=== PATIENT | female | born 1945 | race Caucasian/White ===

== ENCOUNTER → 2016-08-14 | Outpatient (CLI) | payer OTHER ==
--- NOTE | 2016-08-14 08:16 | BD ---
EXAMINATION TYPE: MG DEXA axial skeleton. DATE OF EXAM: 08/14/2016 Height: 57.50 inches Weight: 130 FRAX RISK QUESTIONS: Alcohol (3 or more units per day): no Family History (Parent hip fracture): no Glucocorticoids (More than 3mos): no (Ex: prednisone, prednisolone, methylprednisolone, dexamethasone, and hydrocortisone). History of Fracture in Adulthood: no Secondary Osteoporosis: 1. Type 1 Diabetes: no 2. Hyperthyroidism: unsure 3. Menopause before 45: no, age 49 4. Malnutrition: no 5. Chronic liver disease: no Rheumatoid Arthritis: no Current Tobacco Use: no RISK FACTORS HISTORY OF: Family History of Osteoporosis: unsure, none that knows of Drink Alcohol: occasionally, once & a while Active: yes Diet low in dairy products/other sources of calcium: no Postmenopausal woman: yes Take estrogen and/or progesterone medications: no Lost more than 2 inches in height since high school: unsure Frequent falls: no Poor Health: no Hyperparathyroidism: unsure Adrenal Insufficiency: no MEDICATIONS: Prednisone or other steroids: no Thyroid Medications: yes Which medication: Levothyroxine How Long: since 1998 Osteoporosis Medications: yes Which medication: Fosamax How Long: over 5 years, before that took Actonel Additional Medications: Vit D & Calcium Additional History: thyroid nodule removed EXAM MEASUREMENTS: Bone mineral densitometry was performed using the [employer] System. Bone mineral density as measured about the Lumbar spine is: ----- L1-L4(G/cm2): 1.179 T Score Values are as follows: ----- L2: -0.4 ----- L3: 0.2 ----- L4: -0.1 ----- L1-L4: 0.0 Bone mineral density has: Decreased -1.4% since study of: 08/09/2014 Bone mineral density about the R hip (g/cm2): 0.814 Bone mineral density about the L hip (g/cm2): 0.844 T Score values are as follows: -----R Neck: -1.6 -----L Neck: -1.4 -----R Total: 0.1 -----L Total: 0.1 Bone mineral density has: Increased 1.2% since study of: 08/09/2014 IMPRESSION: Osteopenia (T Score between -2.5 and -1 as noted by T score values Bilateral Necks There is slightly increased risk of fracture and the patient may be considered for treatment. Re-Screen 2-5 years. NOTE: T-SCORE=SD OF THE YOUNG ADULT MEAN.
--- NOTE | 2016-08-14 09:55 | MM ---
Reason for exam: screening (asymptomatic). Last mammogram was performed 1 year ago. History: Patient is postmenopausal. Physical Findings: A clinical breast exam by your physician is recommended on an annual basis and results should be correlated with mammographic findings. MG Screening Mammo w CAD Bilateral CC and MLO view(s) were taken. Prior study comparison: August 13, 2015, bilateral MG screening mammo w CAD. August 09, 2014, bilateral MG screening mammo w CAD. The breast tissue is almost entirely fat. There is no discrete abnormality. No significant changes when compared with prior studies. ASSESSMENT: Negative, BI-RAD 1 RECOMMENDATION: Routine screening mammogram of both breasts in 1 year.
== END | disposition home or self-care (01) ==
LOC: RADMAMWWP 06:51
PROVIDERS: ATTEND Family Medicine
DX: Z12.31 Encounter for screening mammogram for malignant neoplasm of breast (principal); M85.80 Other specified disorders of bone density and structure, unspecified site
CPT/HCPCS: 77080; G0202

== ENCOUNTER 2017-07-14 08:51 | Day surgery (SDC) | payer OTHER ==
[2017-07-12 16:16] VITALS: BMI 28.2
[~2017-07-14 08:51] MED LIST: LACTATED RINGERS 1,000 ML IV SCH; LIDOCAINE 1% 20 ML VIAL (10MG/ML) FOR IV START INTRADERMA PRN
[2017-07-14 09:44] VITALS: TEMP 98.2
[2017-07-14] MEDS ORDERED: LACTATED RINGERS 1,000 ML IV ONE (09:45)
--- NOTE | 2017-07-14 10:06 | P.GSHP ---
History of Present Illness H&P Date: 07/14/17 CHIEF COMPLAINT: Colon screen HISTORY OF PRESENT ILLNESS: The patient is a 71-year-old female who presents for colon screen. Lower endoscopy was offered for further evaluation and management. PAST MEDICAL HISTORY: Please see list. PAST SURGICAL HISTORY: Please see list. MEDICATIONS: Please see list. ALLERGIES: Please see list. SOCIAL HISTORY: No illicit drug use FAMILY HISTORY: No reports of Crohn disease or ulcerative colitis. REVIEW OF ORGAN SYSTEMS: CONSTITUTIONAL: No reports of fevers or chills. PHYSICAL EXAM: VITAL SIGNS: Stable GENERAL: Well-developed pleasant in no acute distress. HEENT: No scleral icterus. Extraocular movements grossly intact. Moist buccal mucosa. NECK: Supple without lymphadenopathy. CHEST: Unlabored respirations. Equal bilateral excursions. CARDIOVASCULAR: Regular rate and rhythm. Distal 2+ pulses. ABDOMEN: Soft, nontender, nondistended. MUSCULOSKELETAL: No clubbing, cyanosis, or edema. ASSESSMENT: 1. Colon screen. PLAN: 1. Recommend proceeding with a lower endoscopy Past Medical History Past Medical History: Thyroid Disorder Additional Past Medical History / Comment(s): HX OF THYROID NODULE, HX OF COLON POLYP. History of Any Multi-Drug Resistant Organisms: None Reported Past Surgical History: Appendectomy, Bladder Surgery Additional Past Surgical History / Comment(s): BLADDER SUSPENSION X2, RIGHT THYROID NODULE Past Anesthesia/Blood Transfusion Reactions: No Reported Reaction Past Psychological History: No Psychological Hx Reported Smoking Status: Never smoker Past Alcohol Use History: Rare Past Drug Use History: None Reported - Past Family History Daughter(s) Family Medical History: Cancer Additional Family Medical History / Comment(s): FROM COLON CANCER Father Additional Family Medical History / Comment(s): ALZHEIMERS Sister(s) Additional Family Medical History / Comment(s): ALZHEIMERS Mother Additional Family Medical History / Comment(s): HEART FAILURE Medications and Allergies Home Medications Medication Instructions Recorded Confirmed Type Alendronate Sodium [Fosamax] 70 mg PO WEEKLY 07/12/17 07/12/17 History Georges/D3/Mag11/Zinc/Machine Feeder Raw Stock/Abdelrahman/Bor 1 each PO DAILY 07/12/17 07/12/17 History [Caltrate 600+D Plus Tablet] Levothyroxine Sodium [Synthroid] 75 mcg PO DAILY 07/12/17 07/12/17 History Multivit/Folic Acid/Vit K1 1 each PO DAILY 07/12/17 07/12/17 History [One-A-Day Women's 50 Plus Tab] Vitamin E (Dl,Tocopheryl Acet) 400 unit PO DAILY 07/12/17 07/12/17 History [Vitamin E] Allergies Allergy/AdvReac Type Severity Reaction Status Date / Time codeine Allergy Unknown Rash/Hives Verified 07/12/17 16:07 Penicillins Allergy Unknown Rash/Hives Verified 07/12/17 16:07 Sulfa (Sulfonamide Allergy Unknown Rash/Hives Verified 07/12/17 16:07 Antibiotics) Surgical - Exam Vital Signs Temp Pulse Resp BP Pulse Ox 98.2 F 80 18 139/76 99 07/14/17 09:43 07/14/17 09:43 07/14/17 09:43 07/14/17 09:43 07/14/17 09:43
[2017-07-14] MEDS ORDERED: PROPOFOL 10 MG/ML 20 ML VIAL IV ONE (10:25)
[2017-07-14] MEDS ORDERED: LIDOCAINE 1% INJ 10MG/ML (20 ML MDV) ONE (10:25)
--- NOTE | 2017-07-14 10:43 | P.PCN ---
Date of Procedure: 07/14/17 Description of Procedure: PREOPERATIVE DIAGNOSIS: Colonoscopy screening. Personal history of polyps. History of colon cancer in daughter POSTOPERATIVE DIAGNOSIS: Colonoscopy screening. Personal history of polyps. History of colon cancer in daughter OPERATION: Colonoscopy to the ileocecal valve and appendiceal orifice. SURGEON: Manju Camargo MD. ANESTHESIA: MAC. INDICATIONS: The patient is a 71-year-old female who presents for colonoscopy screening. Last colonoscopy was 5 years ago. Benefits and risks were described and informed consent was obtained. DESCRIPTION OF PROCEDURE: The patient had undergone Gatorade, MiraLAX and Dulcolax prep. She had been brought into the operating room and laid in the left lateral decubitus position. After adequate intravenous sedation, the rectum was examined with 2% lidocaine jelly. E external hemorrhoids were encountered. The rectal tone was within normal limits. No lesions were palpated in the rectal vault. An Olympus colonoscope was advanced until the ileocecal valve and appendiceal orifice were clearly viewed. The prep was excellent with clear visualization of the mucosal folds. The scope was removed with visualization of each mucosal fold. No scattered diverticulosis was encountered. No colonic polyps were found. No evidence of focal colitis was found. Retroflexion of the scope demonstrated grade 1 internal hemorrhoids without active bleeding or inflammation. The colon was desufflated. The patient had tolerated the procedure well. Withdrawal time was over 6 minutes. FINDINGS: Internal hemorrhoids, grade 1 External prolapsed hemorrhoids, grade 2 No arteriovenous malformations. No adenomatous polyps. No focal colitis. No diverticulosis. RECOMMENDATIONS: Lower endoscopy 5 years, 2022 Plan - Discharge Summary New Discharge Prescriptions: No Action Vitamin E (Dl,Tocopheryl Acet) [Vitamin E] 400 unit PO DAILY Levothyroxine Sodium [Synthroid] 75 mcg PO DAILY Multivit/Folic Acid/Vit K1 [One-A-Day Women's 50 Plus Tab] 1 each PO DAILY Georges/D3/Mag11/Zinc/Diversity Intern/Abdelrahman/Bor [Caltrate 600+D Plus Tablet] 1 each PO DAILY Alendronate Sodium [Fosamax] 70 mg PO WEEKLY Discharge Medication List Alendronate Sodium [Fosamax] 70 mg PO WEEKLY 07/12/17 [History] Georges/D3/Mag11/Zinc/Diversity Intern/Abdelrahman/Bor [Caltrate 600+D Plus Tablet] 1 each PO DAILY [History] Levothyroxine Sodium [Synthroid] 75 mcg PO DAILY 07/12/17 [History] Multivit/Folic Acid/Vit K1 [One-A-Day Women's 50 Plus Tab] 1 each PO DAILY 07/12 [History] Vitamin E (Dl,Tocopheryl Acet) [Vitamin E] 400 unit PO DAILY 07/12/17 [History]
[2017-07-14 10:49] VITALS: RESP 16
[2017-07-14 11:05] VITALS: BP 119/79; PULSE 69
== END 2017-07-14 11:23 | disposition home or self-care (01) ==
LOC: ORWHC2ENDO 08:51
PROVIDERS: ATTEND Surgery Plastic and Reconstructive Surgery
DX: Z12.11 Encounter for screening for malignant neoplasm of colon (principal); K64.0 First degree hemorrhoids; K64.1 Second degree hemorrhoids; Z86.010 Personal history of colon polyps; Z80.0 Family history of malignant neoplasm of digestive organs; E07.9 Disorder of thyroid, unspecified; Z79.890 Hormone replacement therapy; Z79.899 Other long term (current) drug therapy; Z88.5 Allergy status to narcotic agent; Z88.0 Allergy status to penicillin; Z88.2 Allergy status to sulfonamides
CPT/HCPCS: J2001; J2704; G0105; 45378

== ENCOUNTER → 2018-08-19 | Outpatient (CLI) | payer OTHER ==
--- NOTE | 2018-08-19 14:50 | BD ---
EXAMINATION TYPE: Axial Bone Density DATE OF EXAM: 08/19/2018 COMPARISON: 08.14.2016 CLINICAL HISTORY: 73 YR OLD FEMALE....ICD-10 CODE: M85.80 DISORDER OF BONE Height: 57 Weight: 133 FRAX RISK QUESTIONS: NOTHING TO NOTE HERE RISK FACTORS HISTORY OF: Family History of Osteoporosis: [facility] Postmenopausal woman: YES AT AGE 49 Lost more than 2 inches in height since high school: YES MEDICATIONS: Thyroid Medications: YES, GENERIC SYNTHROID, FOR ABOUT 20 YRS Osteoporosis Medications: FOSAMAX IN PAST....STOPPED TAKING LAST MONTH, ON IT FOR MANY YRS Additional Medications: VIT D AND E AND ONE A-DAY MULTIVITAMIN AND CALTRATE Additional History: NOTHING ADDITIONAL TO NOTE HERE EXAM MEASUREMENTS: Bone mineral densitometry was performed using the [employer] System. Bone mineral density as measured about the Lumbar spine is: ----- L1-L4(G/cm2): 1.253 T Score Values are as follows: ----- L1: 0.4 ----- L2: 0.3 ----- L3: 1.2 ----- L4: 0.3 ----- L1-L4: 0.6 Bone mineral density has: Increased 7.1% since study of: 08.14.2016 Bone mineral density about the R hip (g/cm2): 0.978 Bone mineral density about the L hip (g/cm2): 1.035 T Score values are as follows: -----R Neck: -1.3 -----L Neck: -1.7 -----R Total: -0.2 -----L Total: 0.2 Bone mineral density has: Decreased -1.2% since study of: 08.14.2016 FRAX%s: THERE IS A 10.7% CHANCE FOR A MAJOR OSTEOPOROTIC FX AND A 1.9% FOR HIP ....PROBABILITY FOR FX IN 10 YRS TIME IMPRESSION: Osteopenia (T Score between -2.5 and -1). There is slightly increased risk of fracture and the patient may be considered for treatment. Re-Screen 2-5 years. NOTE: T-SCORE=SD OF THE YOUNG ADULT MEAN.
--- NOTE | 2018-08-23 11:24 | MM ---
Reason for exam: screening (asymptomatic). Last mammogram was performed 2 years ago. History: Patient is postmenopausal. Physical Findings: A clinical breast exam by your physician is recommended on an annual basis and results should be correlated with mammographic findings. MG 3D Screening Mammo W/Cad Bilateral CC and MLO view(s) were taken. Prior study comparison: August 14, 2016, bilateral MG screening mammo w CAD. August 13, 2015, bilateral MG screening mammo w CAD. There are scattered fibroglandular densities. No significant changes when compared with prior studies. ASSESSMENT: Negative, BI-RAD 1 RECOMMENDATION: Routine screening mammogram of both breasts in 1 year.
== END | disposition home or self-care (01) ==
LOC: RADBDWWP 12:26
PROVIDERS: ATTEND Family Medicine
DX: Z12.31 Encounter for screening mammogram for malignant neoplasm of breast (principal); M85.88 Other specified disorders of bone density and structure, other site
CPT/HCPCS: 77063; 77067; 77080

== ENCOUNTER → 2020-08-29 | Outpatient (CLI) | payer MEDICARE ==
--- NOTE | 2020-08-29 15:44 | XR ---
EXAMINATION TYPE: XR chest 2V DATE OF EXAM: 08/29/2020 COMPARISON: NONE HISTORY: R09.89 TECHNIQUE: Frontal and lateral views of the chest are obtained. FINDINGS: There is no focal air space opacity, pleural effusion, or pneumothorax seen. The cardiac silhouette size is within normal limits. The osseous structures are intact. IMPRESSION: No acute cardiopulmonary process.
== END | disposition home or self-care (01) ==
LOC: RADXRMAIN 15:21
PROVIDERS: ATTEND Family Medicine
DX: R09.89 Other specified symptoms and signs involving the circulatory and respiratory systems (principal)
CPT/HCPCS: 71046

== ENCOUNTER → 2020-09-26 | Outpatient (CLI) | payer MEDICARE ==
--- NOTE | 2020-09-26 09:46 | BD ---
EXAMINATION TYPE: Axial Bone Density DATE OF EXAM: 09/26/2020 COMPARISON: 08.19.2018 CLINICAL HISTORY: 75 YR OLD FEMALE....ICD-10 CODE M85.50 DISORDERS OF BONE DEN Height: 56.7 Weight: 133 FRAX RISK QUESTIONS: NOTHING TO ADD HERE RISK FACTORS HISTORY OF: Postmenopausal woman: YES, AT AGE 49 YRS OLD Lost more than 2 inches in height since high school: YES Hyperparathyroidism: NO Adrenal Insufficiency: NO MEDICATIONS: Thyroid Medications: YES, SYNTHROID FOR 20+ YRS Osteoporosis Medications: TOOK ACTINAL AND FOSAMAX 2-3 YRS AGO, TOOK THEM FOR ABOUT 18 YRS PRIOR TO T HIS Additional Medications: REFLUX MEDS, VIT D AND ONE A DAY VITAMIN WITH CA, MAGNESIUM, Additional History: REFLUX, EXAM MEASUREMENTS: Bone mineral densitometry was performed using the [employer] System. Bone mineral density as measured about the Lumbar spine is: ----- L1-L4(G/cm2): 1.290 T Score Values are as follows: ----- L1: 0.8 ----- L2: 0.8 ----- L3: 0.8 ----- L4: 1.1 ----- L1-L4: 0.9 Bone mineral density has: Increased 2.6% since study of: 08.19.2018 Bone mineral density about the R hip (g/cm2): 1.013 Bone mineral density about the L hip (g/cm2): 1.021 T Score values are as follows: -----R Neck: -1.3 -----L Neck: -1.2 -----R Total: 0.0 -----L Total: 0.1 Bone mineral density has: Increased 1.0% since study of: 08.19.2018 FRAX%s: THERE IS A 10.0 % CHANCE FOR A MAJOR OSTEOPOROTIC FX AND A 1.5% FOR HIP.....PROBABILITY F OR FX IN 10 YRS TIME IMPRESSION: Normal bone mineral density. NOTE: T-SCORE=SD OF THE YOUNG ADULT MEAN.
--- NOTE | 2020-09-30 08:08 | MM ---
Reason for exam: screening (asymptomatic). Last mammogram was performed 2 years and 1 month ago. History: Patient is postmenopausal. Physical Findings: A clinical breast exam by your physician is recommended on an annual basis and results should be correlated with mammographic findings. MG 3D Screening Mammo W/Cad Bilateral CC and MLO view(s) were taken. Prior study comparison: August 19, 2018, bilateral MG 3d screening mammo w/cad. August 14, 2016, bilateral MG screening mammo w CAD. There are scattered fibroglandular densities. Focal asymmetry left MLO view. This finding is changed when compared with previous exams. ASSESSMENT: Incomplete: need additional imaging evaluation, BI-RAD 0 RECOMMENDATION: Special view mammogram of the left breast. If lesion persists on supplemental views, image directed ultrasound is recommended. [facility] will attempt to contact patient to return for supplemental views and ultrasound if indicated.
== END | disposition home or self-care (01) ==
LOC: RADMAMWWP 07:02
PROVIDERS: ATTEND Family Medicine
DX: Z12.31 Encounter for screening mammogram for malignant neoplasm of breast (principal); Z78.0 Asymptomatic menopausal state
CPT/HCPCS: 77063; 77067; 77080

== ENCOUNTER → 2020-10-11 | Outpatient (CLI) | payer MEDICARE ==
--- NOTE | 2020-10-14 09:50 | MM ---
Reason for exam: additional evaluation requested from abnormal screening. Last mammogram was performed less than 1 month ago. History: Patient is postmenopausal. Physical Findings: Nurse did not find any significant physical abnormalities on exam. MG 3D Work Up W/Cad LT Spot compression MLO, LM, and XCCL view(s) were taken of the left breast. Prior study comparison: September 26, 2020, bilateral MG 3d screening mammo w/cad. August 19, 2018, bilateral MG 3d screening mammo w/cad. There are scattered fibroglandular densities. There is no discrete abnormality including area of concern. No significant new findings when compared with previous films. These results were verbally communicated with the patient and result sheet given to the patient on 10/11/20. ASSESSMENT: Benign, BI-RAD 2 RECOMMENDATION: Return to routine screening mammogram schedule for both breasts.
== END | disposition home or self-care (01) ==
LOC: RADMAMWWP 13:35
PROVIDERS: ATTEND Family Medicine
DX: R92.8 Other abnormal and inconclusive findings on diagnostic imaging of breast (principal)
CPT/HCPCS: 77065; G0279; 77061

== ENCOUNTER → 2021-09-30 | Outpatient (CLI) | payer MEDICARE ==
--- NOTE | 2021-10-01 09:02 | MM ---
Reason for Exam: Screening (asymptomatic). Last screening mammogram was performed 12 month(s) ago. Patient History: Menarche at age 14. First Full-Term at age 28. Hysterectomy at age 67. Postmenopausal. Risk Values: Ryanne 5 year model risk: 2.0%. NCI Lifetime model risk: 4.5%. Prior Study Comparison: 08/19/2018 Bilateral Screening Mammogram, [facility]. 09/26/2020 Bilateral Screening Mammogram, [facility]. 10/11/2020 Left Diagnostic Mammogram, [facility]. Tissue Density: There are scattered fibroglandular densities. Findings: Analyzed By CAD. There is no suspicious group of microcalcifications or new suspicious mass in either breast. Overall Assessment: Negative, BI-RAD 1 Management: Screening Mammogram of both breasts in 1 year. A clinical breast exam by your physician is recommended on an annual basis and results should be correlated with mammographic findings. Electronically signed and approved by: Radu Redd M.D. Radiologis
== END | disposition home or self-care (01) ==
LOC: RADMAMWWP 07:06
PROVIDERS: ATTEND Family Medicine
DX: Z12.31 Encounter for screening mammogram for malignant neoplasm of breast (principal); Z78.0 Asymptomatic menopausal state
CPT/HCPCS: 77063; 77067

== ENCOUNTER 2022-07-22 07:29 | Day surgery (SDC) | payer MEDICARE ==
[2022-07-22] MEDS ORDERED: LACTATED RINGERS 1,000 ML IV SCH (07:32)
--- NOTE | 2022-07-22 07:37 | P.GSHP ---
History of Present Illness H&P Date: 07/22/22 CHIEF COMPLAINT: Colon screen HISTORY OF PRESENT ILLNESS: The patient is a [age]-year-old female who presents for colon screen. Lower endoscopy was offered for further evaluation and management. PAST MEDICAL HISTORY: Please see list. PAST SURGICAL HISTORY: Please see list. MEDICATIONS: Please see list. ALLERGIES: Please see list. SOCIAL HISTORY: No illicit drug use FAMILY HISTORY: No reports of Crohn disease or ulcerative colitis. REVIEW OF ORGAN SYSTEMS: CONSTITUTIONAL: No reports of fevers or chills. PHYSICAL EXAM: VITAL SIGNS: Stable GENERAL: Well-developed pleasant in no acute distress. HEENT: No scleral icterus. Extraocular movements grossly intact. Moist buccal mucosa. NECK: Supple without lymphadenopathy. CHEST: Unlabored respirations. Equal bilateral excursions. CARDIOVASCULAR: Regular rate and rhythm. Distal 2+ pulses. ABDOMEN: Soft, nontender, nondistended. MUSCULOSKELETAL: No clubbing, cyanosis, or edema. ASSESSMENT: 1. Colon screen. PLAN: 1. Recommend proceeding with a lower endoscopy Past Medical History Past Medical History: Hypertension, Thyroid Disorder Additional Past Medical History / Comment(s): HX OF THYROID NODULE, possible HX OF COLON POLYP History of Any Multi-Drug Resistant Organisms: None Reported Past Surgical History: Appendectomy, Bladder Surgery Additional Past Surgical History / Comment(s): BLADDER SUSPENSION X2, RIGHT THYROID NODULE, colonoscopies Past Anesthesia/Blood Transfusion Reactions: No Reported Reaction Smoking Status: Never smoker - Past Family History Daughter(s) Family Medical History: Cancer Additional Family Medical History / Comment(s): FROM COLON CANCER Father Additional Family Medical History / Comment(s): ALZHEIMERS Sister(s) Additional Family Medical History / Comment(s): ALZHEIMERS Mother Additional Family Medical History / Comment(s): HEART FAILURE Medications and Allergies Home Medications Medication Instructions Recorded Confirmed Type Levothyroxine Sodium [Synthroid] 75 mcg PO DAILY 07/12/17 07/17/22 History Multivit/Folic Acid/Vit K1 1 each PO DAILY 07/12/17 07/17/22 History [One-A-Day Women's 50 Plus Tab] Vitamin E (Dl,Tocopheryl Acet) 400 unit PO DAILY 07/12/17 07/17/22 History [Vitamin E] Ascorbic Acid [Vitamin C] 1,000 mg PO DAILY 07/17/22 07/17/22 History Cholecalciferol [Vitamin D3 (25 25 mcg PO DAILY 07/17/22 07/17/22 History Mcg = 1000 Iu)] lisinopriL [Zestril] 2.5 mg PO 1600 07/17/22 07/17/22 History Allergies Allergy/AdvReac Type Severity Reaction Status Date / Time codeine Allergy Unknown Rash/Hives Verified 07/17/22 10:53 Penicillins Allergy Unknown Rash/Hives Verified 07/17/22 10:53 Sulfa (Sulfonamide Allergy Unknown Rash/Hives Verified 07/17/22 10:53 Antibiotics)
[2022-07-22 07:54] VITALS: TEMP 98
--- NOTE | 2022-07-22 09:11 | P.PCN ---
Date of Procedure: 07/22/22 Description of Procedure: PREOPERATIVE DIAGNOSIS: Personal history of colon polyp Family history colon cancer, daughter Colonoscopy screening. POSTOPERATIVE DIAGNOSIS: Personal history of colon polyp Family history colon cancer, daughter Colonoscopy screening. Diverticulosis, scattered. OPERATION: Colonoscopy to the cecum, ileocecal valve and appendiceal orifice. SURGEON: Manju Camargo MD. ANESTHESIA: MAC. INDICATIONS: The patient is a 76-year-old female who presents for colonoscopy screening. Last colonoscopy 5 years ago. Benefits and risks were described and informed consent was obtained. DESCRIPTION OF PROCEDURE: The patient had undergone Miralax prep. The patient had been brought into the operating room and laid in the left lateral decubitus position. After adequate intravenous sedation, the rectum was examined with 2% lidocaine jelly. External hemorrhoids were encountered. The rectal tone was within normal limits. No lesions were palpated in the rectal vault. An Olympus colonoscope was advanced until the cecum, ileocecal valve and appendiceal orifice were clearly viewed. The prep was excellent. She had a redundant sigmoid colon requiring abdominal wall pressure. Scattered diverticulosis was encountered. No colonic polyps were found. No evidence of focal colitis was found. Retroflexion of the scope demonstrated grade 3 internal hemorrhoids without active bleeding or inflammation. The colon was desufflated. The patient had tolerated the procedure well. Withdrawal time was over 6 minutes. FINDINGS: Aronchick preparation quality scale (1-5) Internal hemorrhoids, grade 3 External prolapsed hemorrhoids, grade 3 No arteriovenous malformations. No adenomatous polyps. No focal colitis. Moderate sigmoid diverticulosis RECOMMENDATIONS: Lower endoscopy in 5 years2027 Plan - Discharge Summary Discharge Rx Participant: No New Discharge Prescriptions: Continue Vitamin E (Dl,Tocopheryl Acet) [Vitamin E (400 Iu = 180 mg)] 400 unit PO DAILY Levothyroxine Sodium [Synthroid] 75 mcg PO DAILY Multivit/Folic Acid/Vit K1 [One-A-Day Women's 50 Plus Tab] 1 each PO DAILY lisinopriL [Zestril] 2.5 mg PO 1600 Cholecalciferol [Vitamin D3 (25 Mcg = 1000 Iu)] 25 mcg PO DAILY Ascorbic Acid [Vitamin C] 1,000 mg PO DAILY Discharge Medication List Levothyroxine Sodium [Synthroid] 75 mcg PO DAILY 07/12/17 [History] Multivit/Folic Acid/Vit K1 [One-A-Day Women's 50 Plus Tab] 1 each PO DAILY 07/12/17 [History] Vitamin E (Dl,Tocopheryl Acet) [Vitamin E (400 Iu = 180 mg)] 400 unit PO DAILY 07/12/17 [History] Ascorbic Acid [Vitamin C] 1,000 mg PO DAILY 07/17/22 [History] Cholecalciferol [Vitamin D3 (25 Mcg = 1000 Iu)] 25 mcg PO DAILY 07/17/22 [History] lisinopriL [Zestril] 2.5 mg PO 1600 07/17/22 [History] Follow up Appointment(s)/Referral(s): Manju Camargo MD [STAFF PHYSICIAN] - As Needed Patient Instructions/Handouts: Diverticulosis Diet (GEN), Diverticulitis Diet (DC) Activity/Diet/Wound Care/Special Instructions: Repeat colonoscopy 5 years, 2027 Discharge Disposition: HOME SELF-CARE
[2022-07-22 09:12] VITALS: BP 124/83; PULSE 74; RESP 16
[2022-07-22] MEDS ORDERED: PROPOFOL 10 MG/ML 20 ML VIAL IV ONE (09:26)
== END 2022-07-22 09:35 | disposition home or self-care (01) ==
LOC: ORWHC2ENDO 07:29
PROVIDERS: ATTEND Surgery Plastic and Reconstructive Surgery
DX: Z12.11 Encounter for screening for malignant neoplasm of colon (principal); K57.30 Diverticulosis of large intestine without perforation or abscess without bleeding; K64.2 Third degree hemorrhoids; K64.8 Other hemorrhoids; I10 Essential (primary) hypertension; E03.9 Hypothyroidism, unspecified; E07.9 Disorder of thyroid, unspecified; Z98.890 Other specified postprocedural states; Z90.49 Acquired absence of other specified parts of digestive tract; Z82.49 Family history of ischemic heart disease and other diseases of the circulatory system; Z88.5 Allergy status to narcotic agent; Z88.0 Allergy status to penicillin; Z79.890 Hormone replacement therapy; Z80.0 Family history of malignant neoplasm of digestive organs; Z86.010 Personal history of colon polyps; Z79.899 Other long term (current) drug therapy
CPT/HCPCS: G0105; J2704; 45378

== ENCOUNTER → 2022-11-04 | Outpatient (CLI) | payer MEDICARE ==
--- NOTE | 2022-11-04 23:24 | BD ---
EXAMINATION TYPE: Axial Bone Density DATE OF EXAM: 11/04/2022 CLINICAL HISTORY: 77 years old Female. ICD-10 CODE: N95.9 menopausal Height: 4 ft 9 1/2 in Weight: 134 FRAX RISK QUESTIONS: Alcohol (3 or more units per day): no Family History (Parent hip fracture): no Glucocorticoids (More than 3mos): no (Ex: prednisone, prednisolone, methylprednisolone, dexamethasone, and hydrocortisone). History of Fracture in Adulthood: yes Secondary Osteoporosis: 1. Type 1 Diabetes: no 2. Hyperthyroidism: no 3. Menopause before 45: no 4. Malnutrition: no 5. Chronic liver disease: no Rheumatoid Arthritis: no Current Tobacco Use: no RISK FACTORS HISTORY OF: Surgery to Spine/Hip(right/left)/Wrist (right/left): no Family History of Osteoporosis: yes Active: yes Diet low in dairy products/other sources of calcium: no Postmenopausal woman: yes Take estrogen and/or progesterone medications: no Lost more than 2 inches in height since high school: no Frequent falls: no Poor Health: good Hyperparathyroidism: no Adrenal Insufficiency: no MEDICATIONS: Thyroid Medications: yes Which medication: levothyroxine How Lon years Additional Medications: levothyroxine, lisinopril, Additional History: EXAM MEASUREMENTS: Bone mineral densitometry was performed using the [employer] System. Bone mineral density as measured about the Lumbar spine is: ----- L1-L4(G/cm2): 1.203 T Score Values are as follows: ----- L1: 0.1 ----- L2: 0.1 ----- L3: 0.1 ----- L4: 0.2 ----- L1-L4: 0.2 Z Score Values are as follows: ----- L1: 2.0 ----- L2: 2.0 ----- L3: 2.0 ----- L4: 2.1 ----- L1-L4: 2.1 Bone mineral density has: decreased -6.7 % since study of: 2020 Bone mineral density about the R hip (g/cm2): 0.805 Bone mineral density about the L hip (g/cm2): 0.855 T Score values are as follows: -----R Neck: -1.7 -----L Neck: -1.3 -----R Total: -0.1 -----L Total: 0.3 Z Score values are as follows: -----R Neck: 0.3 -----L Neck: 0.7 -----R Total: 1.8 -----L Total: 2.2 Bone mineral density has: increased 0.7 % since study of: 2020 FRAX%s: The graph provided illustrates a 17.8 % chance for a major osteoporotic fx and a 3.7 % chance for the hips probability for fx in 10 years time. IMPRESSION: Osteopenia (T Score between -2.5 and -1). There is slightly increased risk of fracture and the patient may be considered for treatment. Re-Screen 2-5 years. NOTE: T-SCORE=SD OF THE YOUNG ADULT MEAN.
--- NOTE | 2022-11-05 09:00 | MM ---
Reason for Exam: Screening (asymptomatic). Last mammogram was performed 1 year(s) and 1 month(s) ago. Patient History: Menarche at age 14. First Full-Term at age 28. Hysterectomy at age 67. Postmenopausal. Risk Values: Ryanne 5 year model risk: 2.0%. NCI Lifetime model risk: 4.2%. Prior Study Comparison: 09/26/2020 Bilateral Screening Mammogram, [facility]. 10/11/2020 Left Diagnostic Mammogram, [facility]. 09/30/2021 Bilateral MG 3D screening mammo w/cad, [facility]. Tissue Density: There are scattered fibroglandular densities. Findings: Analyzed By CAD. There is no suspicious group of microcalcifications or new suspicious mass in either breast. Overall Assessment: Negative, BI-RAD 1 Management: Screening Mammogram of both breasts in 1 year. . Patient should continue monthly self-breast exams. A clinical breast exam by your physician is recommended on an annual basis. This exam should not preclude additional follow-up of suspicious palpable abnormalities. Note on Ryanne scores and lifetime risk: 1. A Ryanne score greater than 3% is considered moderate risk. If this is the case, consider specialist referral to assess eligibility for a risk reducing agent. 2. If overall lifetime risk for the development of breast cancer is 20% or higher, the patient may qualify for future screening with alternating mammogram and breast MRI. Electronically signed and approved by: Radu Redd M.D. Radiologis
== END | disposition home or self-care (01) ==
LOC: RADMAMWWP 07:49
PROVIDERS: ATTEND Family Medicine
DX: Z12.31 Encounter for screening mammogram for malignant neoplasm of breast (principal); M85.89 Other specified disorders of bone density and structure, multiple sites; Z78.0 Asymptomatic menopausal state
CPT/HCPCS: 77063; 77067; 77080

== ENCOUNTER → 2023-01-01 | Outpatient (CLI) | payer MEDICARE ==
[~2023-01-01] MED LIST changes: +DENOSUMAB 60 MG/ML 1 ML SYRINGE SQ NR; -LACTATED RINGERS 1,000 ML IV SCH; -LIDOCAINE 1% 20 ML VIAL (10MG/ML) FOR IV START INTRADERMA PRN
[2023-01-01 11:50] VITALS: BP 133/82; PULSE 84; RESP 16; TEMP 97.8
== END ==
LOC: PROCWHC3 11:16
PROVIDERS: ATTEND Family Medicine
DX: M81.0 Age-related osteoporosis without current pathological fracture (principal)
CPT/HCPCS: 96372; J0897

== ENCOUNTER → 2023-07-09 | Outpatient (CLI) | payer MEDICARE ==
[2023-07-09] MEDS: DENOSUMAB 60 MG/ML 1 ML SYRINGE SQ NR (10:05)
[2023-07-09 10:27] VITALS: BP 119/86; PULSE 71; RESP 16; TEMP 97.8
== END ==
LOC: PROCWHC3 09:48 → EDSTATUS 10:00
PROVIDERS: ATTEND Family Medicine
DX: M81.0 Age-related osteoporosis without current pathological fracture (principal)
CPT/HCPCS: 96372; J0897

== ENCOUNTER → 2023-11-08 | Outpatient (CLI) | payer MEDICARE ==
--- NOTE | 2023-11-17 11:52 | MM ---
Reason for Exam: Screening (asymptomatic). Last screening mammogram was performed 12 month(s) ago. Patient History: Menarche at age 14. First Full-Term at age 28. Hysterectomy at age 67. Postmenopausal. Risk Values: Ryanne 5 year model risk: 2.0%. NCI Lifetime model risk: 4.0%. Prior Study Comparison: 10/11/2020 Left Diagnostic Mammogram, [facility]. 09/30/2021 Bilateral MG 3D screening mammo w/cad, [facility]. 11/04/2022 Bilateral MG 3D screening mammo w/cad, [facility]. Tissue Density: The breasts are almost entirely fatty. Findings: Analyzed By CAD. Right breast: There is no suspicious group of microcalcifications or new suspicious mass. Left breast: There is no suspicious group of microcalcifications or new suspicious mass. Overall Assessment: Negative, BI-RAD 1 Management: Screening Mammogram of both breasts in [address] [facility] will attempt to contact patient to return for supplemental views and ultrasound if indicated. Patient should continue monthly self-breast exams. A clinical breast exam by your physician is recommended on an annual basis. This exam should not preclude additional follow-up of suspicious palpable abnormalities. Note on Ryanne scores and lifetime risk: 1. A Ryanne score greater than 3% is considered moderate risk. If this is the case, consider specialist referral to assess eligibility for a risk reducing agent. 2. If overall lifetime risk for the development of breast cancer is 20% or higher, the patient may qualify for future screening with alternating mammogram and breast MRI. Electronically signed and approved by: Gama Lam DO
== END | disposition home or self-care (01) ==
LOC: RADMAMWWP 14:22
PROVIDERS: ATTEND Family Medicine
DX: Z12.31 Encounter for screening mammogram for malignant neoplasm of breast
CPT/HCPCS: 77063; 77067

== ENCOUNTER → 2024-01-10 | Outpatient (CLI) | payer MEDICARE ==
[2024-01-10] MEDS: DENOSUMAB 60 MG/ML 1 ML SYRINGE SQ NR (12:25)
[2024-01-10 12:54] VITALS: BP 159/84; PULSE 89; RESP 16; TEMP 97.5
== END ==
LOC: PROCWHC3 12:07
PROVIDERS: ATTEND Family Medicine
DX: M81.0 Age-related osteoporosis without current pathological fracture (principal)
CPT/HCPCS: 96372

== ENCOUNTER → 2024-07-11 | Outpatient (CLI) | payer MEDICARE ==
[2024-07-11 13:04] VITALS: BP 117/80; PULSE 89; RESP 16; TEMP 97.9
[2024-07-11] MEDS: DENOSUMAB 60 MG/ML 1 ML SYRINGE SQ NR (13:04)
== END ==
LOC: PROCWHC3 12:25
PROVIDERS: ATTEND Family Medicine
DX: M81.0 Age-related osteoporosis without current pathological fracture (principal)
CPT/HCPCS: 96372; J0897

== ENCOUNTER 2024-09-05 10:07 | Emergency (ER) | payer MEDICARE ==
[2024-09-05 10:33] VITALS: TEMP 98.2
--- NOTE | 2024-09-05 11:10 | ED ---
SOB HPI - General Chief Complaint: Shortness of Breath Stated Complaint: YESSI Time Seen by Provider: 09/05/24 11:04 Source: patient, RN notes reviewed Mode of arrival: ambulatory Limitations: no limitations - History of Present Illness Initial Comments: 79-year-old female presenting for shortness of breath x 1 week. States she chronically has wheezing however over the past week she has started to become more short of breath with exertion with worsening wheezing. Also reports cough worse in the morning. Denies chest pain, fevers, swelling in the legs. She does have a history of hypertension. States she had asthma many years ago. Denies COPD. She is a non-smoker. - Related Data Home Medications Medication Instructions Recorded Confirmed Levothyroxine Sodium [Synthroid] 75 mcg PO DAILY 07/12/17 07/11/24 Multivit/Folic Acid/Vit K1 1 each PO DAILY 07/12/17 07/11/24 [One-A-Day Women's 50 Plus Tab] Ascorbic Acid [Vitamin C] 1,000 mg PO DAILY 07/17/22 07/11/24 Calcium Carbonate/Vitamin D3 1 tab PO DAILY 07/09/23 07/11/24 [Calcium 600 mg-D3 10 Mcg (400 Iu)] Losartan [Cozaar] 12.5 mg PO DAILY 07/09/23 07/11/24 Cholecalciferol (Vitamin D3) 50 mcg PO DAILY 07/11/24 07/11/24 [Vitamin D3 (50 Mcg = 2000 Iu)] Previous Rx's Medication Instructions Recorded predniSONE [Deltasone] 40 mg PO DAILY 5 Days #10 tab 09/05/24 Allergies Allergy/AdvReac Type Severity Reaction Status Date / Time codeine Allergy Unknown Rash/Hives Verified 09/05/24 10:34 Penicillins Allergy Unknown Rash/Hives Verified 09/05/24 10:34 Sulfa (Sulfonamide Allergy Unknown Rash/Hives Verified 09/05/24 10:34 Antibiotics) lisinopril AdvReac Intermediate Cough Verified 09/05/24 10:34 Review of Systems ROS Statement: Those systems with pertinent positive or pertinent negative responses have been documented in the HPI. ROS Other: All systems not noted in ROS Statement are negative. Past Medical History Past Medical History: Hypertension, Thyroid Disorder Additional Past Medical History / Comment(s): HX OF THYROID NODULE, possible HX OF COLON POLYP History of Any Multi-Drug Resistant Organisms: None Reported Past Surgical History: Appendectomy, Bladder Surgery Additional Past Surgical History / Comment(s): BLADDER SUSPENSION X2, RIGHT THYROID NODULE, colonoscopies Past Anesthesia/Blood Transfusion Reactions: No Reported Reaction Past Psychological History: No Psychological Hx Reported Smoking Status: Never smoker - Past Family History Daughter(s) Family Medical History: Cancer Additional Family Medical History / Comment(s): FROM COLON CANCER Father Additional Family Medical History / Comment(s): ALZHEIMERS Sister(s) Additional Family Medical History / Comment(s): ALZHEIMERS Mother Additional Family Medical History / Comment(s): HEART FAILURE General Exam Limitations: no limitations General appearance: alert, in no apparent distress Head exam: Present: atraumatic, normocephalic, normal inspection Respiratory exam: Present: normal lung sounds bilaterally, wheezes (Audible wheezing without use of stethoscope). Absent: respiratory distress, rales, rhonchi, stridor, accessory muscle use Cardiovascular Exam: Present: regular rate, normal rhythm, normal heart sounds. Absent: systolic murmur, diastolic murmur, rubs, gallop, clicks Neurological exam: Present: alert, oriented X3 Psychiatric exam: Present: normal affect, normal mood Skin exam: Present: warm, dry, intact, normal color. Absent: rash Course Vital Signs 09/05/24 09/05/24 09/05/24 10:29 12:03 12:10 Temperature 98.2 F Pulse Rate 108 H 82 85 Respiratory 22 Rate Blood Pressure 147/83 O2 Sat by Pulse 94 L Oximetry 09/05/24 12:49 Temperature Pulse Rate 89 Respiratory 18 Rate Blood Pressure 120/79 O2 Sat by Pulse 96 Oximetry Medical Decision Making - Medical Decision Making Was pt. sent in by a medical professional or institution (, PA, BSS SOLUTION ARCHITECT, urgent care, hospital, or custodial...) When possible be specific @ -No Did you speak to anyone other than the patient for history (EMS, parent, family, police, friend...)? What history was obtained from this source @ -No Did you review nursing and triage notes (agree or disagree)? Why? @ -I reviewed and agree with nursing and triage notes Were old charts reviewed (outside hosp., previous admission, EMS record, old EKG, old radiological studies, urgent care reports/EKG's, custodial records)? Report findings @ -No old charts were reviewed Differential Diagnosis (chest pain, altered mental status, abdominal pain women, abdominal pain men, vaginal bleeding, weakness, fever, dyspnea, syncope, headache, dizziness, GI bleed, back pain, seizure, CVA, palpatations, mental health, musculoskeletal)? @ -Differential Dyspnea: Coronary syndrome, arrhythmia, tamponade, asthma, COPD, pulmonary embolism, pneumonia, pneumothorax, pulmonary effusion, anaphylaxis, diabetic ketoacidosis, flailed chest, pulmonary contusion, diaphragmatic rupture, anemia, neuromuscu lar, this is not meant to be an all-inclusive list. EKG interpreted by me (3pts min.). @ -As above X-rays interpreted by me (1pt min.). @ -Chest x-ray reveals no acute process CT interpreted by me (1pt min.). @ -CT angio chest negative for PE U/S interpreted by me (1pt. min.). @ -None done What testing was considered but not performed or refused? (CT, X-rays, U/S, labs)? Why? @ -None What meds were considered but not given or refused? Why? @ -None Did you discuss the management of the patient with other professionals (professionals i.e. , PA, BSS SOLUTION ARCHITECT, lab, RT, psych nurse, adoption social worker, chili maker, teacher, toxics program officer, caser shoe parts)? Give summary @ -No Was smoking cessation discussed for >3mins.? @ -No Was critical care preformed (if so, how long)? @ -No Were there social determinants of health that impacted care today? How? (Homelessness, low income, unemployed, alcoholism, drug addiction, transportation, low edu. Level, literacy, decrease access to med. care, alf, rehab)? @ -No Was there de-escalation of care discussed even if they declined (Discuss DNR or withdrawal of care, Hospice)? DNR status @ -No What co-morbidities impacted this encounter? (DM, HTN, Smoking, COPD, CAD, C ancer, CVA, ARF, Chemo, Hep., AIDS, mental health diagnosis, sleep apnea, morbid obesity)? @ -None Was patient admitted / discharged? Hospital course, mention meds given and route, prescriptions, significant lab abnormalities, going to OR and other pertinent info. @ - discharge. 79-year-old female presenting for worsening shortness of breath x 1 week with audible wheezing. Patient is mildly tachycardic at 108 bpm, satting 94% on room air. She is afebrile. She is overall well-appearing, no ac issa distress. Provided with dose of Solu-Medrol and DuoNeb. Lab work unremarkable. Patient is negative for COVID-19, influenza, and RSV. Chest x- ray and CT angio chest negative. Upon reevaluation, patient reports significant improvement of symptoms. Patient is no longer wheezing. Discussed diagnosis of asthma exacerbation. Patient will be provided with outpatient course of steroids to start tomorrow. Appropriate return precautions and follow-up care discussed. Case was discussed with my ED attending Dr. Rosales. Undiagnosed new problem with uncertain prognosis? @ -No Drug Therapy requiring intensive monitoring for toxicity (Heparin, Nitro, Insulin, Cardizem)? @ -No Were any procedures done? @ -No Diagnosis/symptom? @ -Asthma exacerbation Acute, or Chronic, or Acute on Chronic? @ -Acute Uncomplicated (without systemic symptoms) or Complicated (systemic symptoms)? @ -Uncomplicated Side effects of treatment? @ -No Exacerbation, Progression, or Severe Exacerbation? @ -No Poses a threat to life or bodily function? How? (Chest pain, USA, OR, pneumonia, PE, COPD, DKA, ARF, appy, cholecystitis, CVA, Diverticulitis, Homicidal, Suicidal, threat to staff... and all critical care pts) @ -Not at this time - Lab Data Result diagrams: 09/05/24 11:12 09/05/24 11:12 Lab Results 09/05/24 09/05/24 09/05/24 Range/Units 11:12 11:12 11:12 WBC 5.25 (4.50-10.00) 10*3/uL RBC 4.45 (4.10-5.20) 10*6/uL Hgb 13.6 (12.0-15.0) g/dL Hct 41.7 (37.2-46.3) % MCV 93.7 (80.0-97.0) fL MCH 30.6 (27.0-32.0) pg MCHC 32.6 (32.0-37.0) g/dL Plt Count 163 (140-440) 10*3/uL MPV 9.2 L (9.5-12.2) fL Immature Gran % (Auto) 0.2 % Neutrophils % 75.2 % Lymphocytes % 15.8 % Monocytes % 4.6 % Eosinophils % 3.8 % Basophils % 0.4 % Immature Gran # 0.01 (0.00-0.04) 10*3/uL Neutrophils # 3.95 (1.80-7.70) 10*3/uL Lymphocytes # 0.83 L (0.90-5.00) 10*3/uL Monocytes # 0.24 (0.20-1.00) 10*3/uL Eosinophils # 0.20 (0.04-0.35) 10*3/uL Basophils # 0.02 (0.00-0.10) 10*3/uL Sodium 143 (137-145) mmol/L Potassium 4.1 (3.5-5.1) mmol/L Chloride 107 (98-107) mmol/L Carbon Dioxide 26 (22-30) mmol/L Anion Gap 10 mmol/L BUN 22 H (7-17) mg/dL Creatinine 0.66 (0.52-1.04) mg/dL Est GFR (CKD-EPI)AfAm >90 (>60 ml/min/1.73 sqM) Est GFR (CKD-EPI)NonAf 86 (>60 ml/min/1.73 sqM) Glucose 144 H (74-99) mg/dL Calcium 9.3 (8.4-10.2) mg/dL Total Bilirubin 0.6 (0.2-1.3) mg/dL AST 25 (14-36) U/L ALT 18 (4-34) U/L Alkaline Phosphatase 44 (38-126) U/L Total Protein 6.8 (6.3-8.2) g/dL Albumin 4.1 (3.5-5.0) g/dL Influenza Type A (PCR) Not Detected (Not Detectd) Influenza Type B (PCR) Not Detected (Not Detectd) RSV (PCR) Not Detected (Not Detectd) SARS-CoV-2 (PCR) Not Detected (Not Detectd) Disposition Clinical Impression: Asthma exacerbation Disposition: HOME SELF-CARE Condition: Stable Instructions (If sedation given, give patient instructions): Asthma (ED) Additional Instructions: Start prednisone tomorrow. Please return to the Emergency Department if symptoms worsen or any other concerns. Prescriptions: predniSONE [Deltasone] 40 mg PO DAILY 5 Days #10 tab Is patient prescribed a controlled substance at d/c from ED?: No Referrals: David Valle DO [Primary Care Provider] - 1-2 days Time of Disposition: 14:49
[2024-09-05 11:26] LABS: Basophils # (A) 0.02 10*3/uL (0.00-0.10); Basophils % (A) 0.4 %; Eosinophils % (A) 3.8 %; HCT 41.7 % (37.2-46.3); HGB 13.6 g/dL (12.0-15.0); Lymphocytes # (A) 0.83 10*3/uL (0.90-5.00); Lymphocytes % (A) 15.8 %; MCH 30.6 pg (27.0-32.0); MCHC 32.6 g/dL (32.0-37.0); MCV 93.7 fL (80.0-97.0); Mean Platelet Volume 9.2 fL (9.5-12.2); Monocytes # (A) 0.24 10*3/uL (0.20-1.00); Monocytes % (A) 4.6 %; Neutrophils # (A) 3.95 10*3/uL (1.80-7.70); Neutrophils % (A) 75.2 %; Platelet Count 163 10*3/uL (140-440); RBC 4.45 10*6/uL (4.10-5.20); RDW 13.1 % (11.5-14.5); WBC 5.25 10*3/uL (4.50-10.00)
[2024-09-05 11:38] LABS: ALT 18 U/L (4-34); AST 25 U/L (14-36); African American GFR (CKD) >90 (>60 ml/min/1.73 sqM); Albumin 4.1 g/dL (3.5-5.0); Alkaline Phosphatase 44 U/L (38-126); Anion Gap 10 mmol/L; Blood Urea Nitrogen 22 mg/dL (7-17); Calcium 9.3 mg/dL (8.4-10.2); Carbon Dioxide 26 mmol/L (22-30); Chloride 107 mmol/L (98-107); Glucose 144 mg/dL (74-99); Non-African American GFR(CKD) 86 (>60 ml/min/1.73 sqM); Potassium 4.1 mmol/L (3.5-5.1); Sodium 143 mmol/L (137-145); Total Bilirubin 0.6 mg/dL (0.2-1.3); Total Protein 6.8 g/dL (6.3-8.2)
--- NOTE | 2024-09-05 11:54 | XR ---
EXAMINATION TYPE: XR chest 2V DATE OF EXAM: 09/05/2024 11:42 AM COMPARISON: 08/29/2020 CLINICAL INDICATION: Female, 79 years old with history of difficulty breathing, TECHNIQUE: XR chest 2V view(s) obtained. FINDINGS: The heart size is normal. The pulmonary vasculature is normal. The lungs are clear. IMPRESSION: 1. No acute pulmonary process. [facility], , 09/05/2024 11:51 AM
[2024-09-05 12:00] LABS: Influenza A Not Detected (Not Detectd); Influenza B Not Detected (Not Detectd); RSV Not Detected (Not Detectd)
[2024-09-05] MEDS: IPRATROPIUM-ALBUTEROL 3 ML NEB INHALATION STA (12:03)
[2024-09-05] MEDS: methylPREDNISolone SOD SUCCI 125 MG/2 ML VIAL IV STA (12:19)
[2024-09-05 12:49] VITALS: RESP 18
--- NOTE | 2024-09-05 14:32 | CT ---
EXAMINATION TYPE: CT angio chest CT DLP: 256.5 mGycm, Automated exposure control for dose reduction was used. DATE OF EXAM: 09/05/2024 2:24 PM COMPARISON: Chest radiograph from same day. CLINICAL INDICATION:Female, 79 years old with history of shortness of breath, elevated D-dimer; SOB, elevated d-dimer TECHNIQUE/CONTRAST: CTA scan of the thorax is performed with IV Contrast, patient injected with 100ml mL of Isovue 370, p ulmonary embolism protocol. MIP images are created and reviewed. FINDINGS: Pulmonary Artery: There is no evidence for a filling defect within the pulmonary vasculature to sugge st acute pulmonary embolism. The pulmonary artery is of normal size. Lungs/Pleura: No evidence of focal consolidation, pleural effusion or pneumothorax. No suspicious pul monary nodule or mass. Airway: Large airways are patent. Heart: Size within normal limits.No pericardial effusion. No significant coronary artery calcificatio ns. Vasculature: No evidence of aortic aneurysm. Mediastinum: No gross evidence of adenopathy. Musculoskeletal: No acute osseous abnormalities. Multilevel anterior osteophytosis of the lower thora cic spine. Soft Tissues: Unremarkable. Lower neck: Right thyroid lobe appears atrophic or surgically absent. Upper Abdomen: Left renal upper pole 1 cm simple appearing cyst. No follow-up recommended.. IMPRESSION: No evidence of pulmonary embolism or acute thoracic process. [facility], , 09/05/2024 2:30 PM
[2024-09-05 15:02] VITALS: BP 137/91; PULSE 92
== END 2024-09-05 15:04 | disposition home or self-care (01) ==
LOC: EC 10:07
DX: J45.901 Unspecified asthma with (acute) exacerbation (principal); Z88.2 Allergy status to sulfonamides; Z88.1 Allergy status to other antibiotic agents; Z88.0 Allergy status to penicillin; Z88.8 Allergy status to other drugs, medicaments and biological substances
CPT/HCPCS: 36415; 94640; 93005; 80053; 85025; 87636; 71046; 71275; 99284; 96374; Q9967; J2919